=== PATIENT | female | born 1965 | race Caucasian/White ===

== ENCOUNTER 2020-08-02 16:48 | Emergency (ER) | payer MEDICARE, OTHER ==
[~2020-08-02] VITALS: Ht 162.6 cm; Wt 86.2 kg
--- NOTE | 2020-08-02 17:32 | ED Fall/Injury ---
General Chief Complaint: Trauma-Non Activation Stated Complaint: FELL,HIT HEAD Source: patient History of Present Illness Date Seen by Provider: Aug 02, 2020 Time Seen by Provider: 17:32 Initial Comments 55-year-old female presenting from home after she fell off of her porch. She hit the back of her head on concrete. She denies any loss of consciousness. She has mild nausea. She denies any other injuries. She was illness and after the accident. She just had tenderness shot last week at her doctor's office for routine maintenance. She has no change in her vision. She denies any numbness or tingling in her arms or legs. She has no shortness of breath or cough. She denies any fever or chills. Allergies and Home Medications Allergies Coded Allergies: cephalexin (Verified Allergy, Unknown, Rash, 08/02/20) Patient Home Medication List Home Medication List Reviewed: Yes Review of Systems Review of Systems Constitutional: No chills, No dizziness, No fever Eyes: Denies Blurred Vision, Denies Photophobia Ears, Nose, Mouth, Throat: denies ear discharge, denies nose pain, denies nose discharge, denies epistaxis Respiratory: no symptoms reported Cardiovascular: no symptoms reported Gastrointestinal: nausea; No vomiting Genitourinary: no symptoms reported Musculoskeletal: no symptoms reported Skin: other (laceration to the back of her head with swelling and bleeding since the accident) Psychiatric/Neurological: Headache (to back of head since the accident) Past Qouucwp-Gauzqr-Bfcsom Hx Past Med/Social Hx: Reviewed Nursing Past Med/Soc Hx Patient Social History Recent Foreign Travel: No Contact w/Someone Who Travel: No Immunizations Up To Date Tetanus Booster (TDap): Less than 5yrs Past Medical History Respiratory: No Cardiac: Yes Hypertension Neurological: No Gastrointestinal: No Musculoskeletal: No Endocrine: Yes Hypothyroidsim Physical Exam Vital Signs Vital Signs - First Documented Capillary Refill : Height, Weight, BMI Height: '" Weight: lbs. oz. kg; BMI Method: General Appearance: WD/WN, mild distress HEENT: PERRL/EOMI, normal ENT inspection, TMs normal, pharynx normal, other (occipital scalp lac x 2 with swelling and tenderness to back of head) Neck: non-tender, full range of motion, supple, normal inspection Cardiovascular: normal peripheral pulses, regular rate, rhythm Respiratory: chest non-tender, lungs clear, normal breath sounds, no respiratory distress, no accessory muscle use Gastrointestinal: normal bowel sounds, non tender, soft Extremities: normal range of motion, non-tender, normal capillary refill Neurologic/Psychiatric: 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 Then I anesthetized wound with 1% plain lidocaine before placing paulie to approximate wound edges. She tolerated the procedure well without any immediate complications. Wound Location: Scalp Wound Length (cm): 1.8 Wound's Depth, Shape: sub Q Wound Explored: clean Anesthesia: 1% Lidocaine Volume Anesthetic (ccs): 4 Staple Repair: Stapler 35W (3 paulie) Progress Wound cleaned with chlorhexidine surgical soap and sterile saline by nurse. Then I anesthetized wound with 1% plain lidocaine before placing paulie to approximate wound edges. She tolerated the procedure well without any immediate complications. Progress/Results/Core Measures Results/Orders My Orders Orders - CHANG STEWART MD Lidocaine 1% Inj 20 Ml (Xylocaine 1% Inj (08/02/20 17:41) Ct Head/Cervical Spine Wo (08/02/20 17:42) Lidocaine 1% Inj 20 Ml (Xylocaine 1% Inj (08/02/20 17:37) Ice: Apply To Affected Area (08/02/20 18:25) Vital Signs/I&O 08/02/20 08/02/20 08/02/20 16:55 16:55 19:10 Temp 36.6 36.6 Pulse 66 66 72 Resp 16 16 18 B/P (MAP) 182/92 (122) 182/92 (122) 156/90 (122) Pulse Ox 100 100 99 O2 Delivery Room Air Room Air Room Air Progress Progress Note #1: Progress Note occipital scalp wounds cleaned by RN. Then after obtaining verbal consent from pt I injected 1% plain lidocaine and then used paulie to close the 2 lacerations. She tolerated this well without any immediate complications. Will scan head and cervical spine to ensure no skull fracture, cervical spine fracture or intracranial hemorrhage. Provided this looks ok will plan discharge to home. [place] out in 7 to 10 days. Progress Note #2: Progress Note CT scans do not show any acute skull fracture or bleeding intracranial. Counseled on follow up and return precautions for the paulie. Diagnostic Imaging Diagonstic Imaging: CT Plain Films/CT/US/NM/MRI: c-spine, head Comments NAME: ASP[facility]AT[facility]A [facility] REC#: [id number] PT STATUS: REG ER : 1965 PHYSICIAN: CHANG STEWART MD ADMIT DATE: 08/02/20/ER FS Draft Date of Exam:08/02/20 CT HEAD/CERVICAL SPINE WO Clinical indication: Patient fell from porch and hit back of head. No loss of consciousness. Patient has occipital scalp laceration. Exam: Head CT without IV contrast with coronal and sagittal reformatted images. Axial CT scan of the cervical spine with sagittal and coronal reformations. Auto Exposure Controls were utilized during the CT exam to meet ALARA standards for radiation dose reduction. Comparison: None. Findings: Head CT: There is no evidence of acute cerebral infarct, intracranial hemorrhage, or gross mass effect. There is normal crum-white matter distinction. The brain parenchymal volume appears appropriate for patient's age. There is no significant midline shift or herniation. The visualized [place] of Renee vascular structures have normal flow void appearance. There is no evidence of hydrocephalus. The basal cisterns are unremarkable. There is a moderate size area of extracranial soft tissue swelling and hematoma involving the right posterior aspect of the head. There is no skull fracture. Otherwise, the skull, extracranial soft tissue, and orbits are unremarkable. The paranasal sinuses are unremarkable. Cervical spine: There is no acute cervical spine fracture or dislocation. There are small anterior spurs at the C6-C7 level anteriorly. Otherwise, there is no significant bone or joint abnormality. There is no significant central spinal canal or neural foramen narrowing. There is no neck soft tissue abnormality seen. The visualized portions of the lung apices are unremarkable. Vagal nerve stimulator device seen overlying the left upper chest and neck region. Impression: 1: There is no CT evidence of acute intracranial process. There is no intracranial hemorrhage or skull fracture. There is a moderate size area of extracranial soft tissue swelling/hematoma involving the right posterior aspect of the head. 2: There is no acute cervical spine fracture or dislocation. Dictated on workstation # [id number] Dict: 08/02/20 1846 Trans: 08/02/20 1854 [facility] [id number] Interpreted by: HUE TODD MD Electronically signed by: Departure Impression Primary Impression: Occipital scalp laceration Qualified Codes: S01.01XA - Laceration without foreign body of scalp, initial encounter Additional Impressions: Closed head injury without loss of consciousness Qualified Codes: S09.90XA - Unspecified injury of head, initial encounter Fall at home Qualified Codes: W19.XXXA - Unspecified fall, initial encounter; Y92.009 - Unspecified place in unspecified non-institutional (private) residence as the place of occurrence of the external cause Disposition: 01 HOME, SELF-CARE Condition: Stable Departure-Patient Inst. Decision time for Depature: 18:57 Referrals: [facility] [place] Patient Instructions: Minor Head Injury (DC), Laceration Repair With Paulie (DC) Add. Discharge Instructions: Keep wound on scalp clean and dry for first 24 hours then may wash and shampoo like normal, but do not soak it. The paulie may be removed with your primary provider or here in the ED in 7 to 10 days. Acetaminophen or Ibuprofen as needed for pain. Ice 15-20 minutes every few hours as needed for pain. All discharge instructions reviewed with patient and/or family. Voiced understanding. CHANG STEWART MD Aug 02, 2020 17:32
[2020-08-02] MEDS ORDERED: LIDOCAINE 1% INJ 20 ML 20 ML VIAL ONE (17:37)
[2020-08-02] MEDS ORDERED: LIDOCAINE 1% INJ 20 ML 20 ML VIAL INJ STA (17:41)
--- NOTE | 2020-08-02 18:53 | NUR ---
Report was given to GLENN Enriquez. Care was transferred.
--- NOTE | 2020-08-02 18:54 | Diagnostic Imaging Report ---
Clinical indication: Patient fell from porch and hit back of head. No loss of consciousness. Patient has occipital scalp laceration. Exam: Head CT without IV contrast with coronal and sagittal reformatted images. Axial CT scan of the cervical spine with sagittal and coronal reformations. Auto Exposure Controls were utilized during the CT exam to meet ALARA standards for radiation dose reduction. Comparison: None. Findings: Head CT: There is no evidence of acute cerebral infarct, intracranial hemorrhage, or gross mass effect. There is normal crum-white matter distinction. The brain parenchymal volume appears appropriate for patient's age. There is no significant midline shift or herniation. The visualized [place] of Renee vascular structures have normal flow void appearance. There is no evidence of hydrocephalus. The basal cisterns are unremarkable. There is a moderate size area of extracranial soft tissue swelling and hematoma involving the right posterior aspect of the head. There is no skull fracture. Otherwise, the skull, extracranial soft tissue, and orbits are unremarkable. The paranasal sinuses are unremarkable. Cervical spine: There is no acute cervical spine fracture or dislocation. There are small anterior spurs at the C6-C7 level anteriorly. Otherwise, there is no significant bone or joint abnormality. There is no significant central spinal canal or neural foramen narrowing. There is no neck soft tissue abnormality seen. The visualized portions of the lung apices are unremarkable. Vagal nerve stimulator device seen overlying the left upper chest and neck region. Impression: 1: There is no CT evidence of acute intracranial process. There is no intracranial hemorrhage or skull fracture. There is a moderate size area of extracranial soft tissue swelling/hematoma involving the right posterior aspect of the head. 2: There is no acute cervical spine fracture or dislocation. Dictated by: Dictated on workstation # [id number]
[2020-08-02 19:10] VITALS: BP 156/90
== END 2020-08-02 19:10 | disposition home or self-care (01) ==
LOC: EDUNIT# 16:48 → ER FS 16:50
DX: S01.01XA Laceration without foreign body of scalp, initial encounter (principal); S09.90XA Unspecified injury of head, initial encounter; R40.2410 Glasgow coma scale score 13-15, unspecified time; Z88.1 Allergy status to other antibiotic agents; W17.89XA Other fall from one level to another, initial encounter; W22.8XXA Striking against or struck by other objects, initial encounter; Y92.009 Unspecified place in unspecified non-institutional (private) residence as the place of occurrence of the external cause
CPT/HCPCS: 70450; 72125

== ENCOUNTER 2020-08-12 13:55 | Emergency (ER) | payer MEDICARE ==
[2020-08-12 14:08] VITALS: BP 156/79
--- NOTE | 2020-08-12 14:10 | ED Suture Removal/Wound Check ---
Suture/Wound Re-check Suture Removal/Wound Recheck : Suture Removal/Wound Recheck: [place] removed by RN General Appearance: WD/WN, no apparent distress Skin Exam: normal color, warm/dry Physical Exam Vital Signs Capillary Refill : General Appearance: WD/WN, no apparent distress HEENT: PERRL/EOMI, normal ENT inspection, TMs normal, pharynx normal Neck: non-tender, full range of motion, supple, normal inspection Skin: normal color, warm/dry Departure Impression Primary Impression: Encounter for removal of sutures Disposition: HOME, SELF-CARE Condition: Stable Departure-Patient Inst. Decision time for Depature: 14:10 Referrals: JOSELO TIRADO MD (PCP/Family) Primary Care Physician Patient Instructions: STAPLE REMOVAL - UNCOMPLICATED RADHA TOMLINSON MD Aug 12, 2020 14:10
== END 2020-08-12 14:15 | disposition home or self-care (01) ==
LOC: EDUNIT# 13:55 → ER FS 13:56
DX: S01.91XD Laceration without foreign body of unspecified part of head, subsequent encounter (principal); X58.XXXD Exposure to other specified factors, subsequent encounter

== ENCOUNTER → 2021-03-11 | Outpatient (CLI) | payer MEDICARE ==
[~2021-03-11] MED LIST: CATHETER FLUSH 10 ML SYR IV PRN; HOLD METFORMIN - RECEIVED CONTRAST 20 ML VIAL IV SCH; IOHEXOL 350 MG/ML 100 ML (OMNIPAQUE 350) VIAL IV ONE; NS 100 ML (IVPB) BAG IV ONE
--- NOTE | 2021-03-11 15:57 | Diagnostic Imaging Report ---
PROCEDURE: CT abdomen and pelvis with contrast. TECHNIQUE: Multiple contiguous axial images were obtained through the abdomen and pelvis after administration of intravenous contrast. Auto Exposure Controls were utilized during the CT exam to meet ALARA standards for radiation dose reduction. All CT scans use one or more of the following dose optimizing techniques: automated exposure control, MA and/or KvP adjustment based on patient size and exam type or iterative reconstruction. INDICATION: Right lower quadrant pain for 2 months. FINDINGS: Lung bases are clear. Liver appears normal. Gallbladder is absent. Bile ducts are not dilated. The pancreas is normal. There is mild splenomegaly. The adrenal glands are not enlarged. Kidneys appear normal. There is normal enhancement of the abdominal organs and vessels following IV contrast. Aorta shows mild atherosclerotic change without evidence of aneurysm or dissection. The stomach and small bowel are not dilated. Colon shows normal stool and gas pattern. Appendix is visualized and normal. There is some diverticulosis of the sigmoid colon but no evidence of diverticulitis. The uterus is absent. There are no pelvic masses. Bladder is normal. No free air or free fluid. No intra-abdominal adenopathy of pathologic size. No blastic or lytic bony changes. IMPRESSION: 1. Mild splenomegaly, nonspecific in nature. 2. The appendix is well-visualized and appears normal. The small bowel shows no evidence of dilatation or wall thickening. 3. Diverticulosis without evidence of diverticulitis. Dictated by: Dictated on workstation # [id number]
== END ==
LOC: RAD FS 15:22
PROVIDERS: ATTEND Family Medicine
DX: K57.30 Diverticulosis of large intestine without perforation or abscess without bleeding (principal); R16.1 Splenomegaly, not elsewhere classified
CPT/HCPCS: 74177

== ENCOUNTER 2021-06-20 17:52 | Emergency (ER) | payer MEDICARE ==
[~2021-06-20] VITALS: Ht 162.6 cm; Wt 83.0 kg
--- OUTSIDE RECORDS SUMMARY | 2021-06-20 17:58 | XMS REPORT | Clinical Summary ---
Author Author [facility] Organization [facility] Address Unknown Phone Unavailable Care Team Providers Care Can Operator Name Role Phone Sebastian Coy MD PCP Allergies Comments Active Allergy Reactions Severity Noted Date Cephalexin Rash Low 06/07/2015 Medications End Date Status Medication Sig Dispensed Refills Start Date Active lithium 300 MG capsule Take 300 mg 0 by mouth every morning. Active sertraline (ZOLOFT) 100 Take 250 mg 0 MG tablet by mouth every morning. Active levothyroxine (SYNTHROID, Take 25 mcg 0 LEVOTHROID) 25 MCG tablet by mouth every morning. Active QUEtiapine (SEROQUEL XR) Take 600 mg 0 400 MG ER 24 hr tablet by mouth nightly. Active atorvastatin (LIPITOR) 10 Take 10 mg by 0 MG tablet mouth nightly. Active ALPRAZolam (XANAX) 0.25 Take 0.25 mg 0 MG tablet by mouth nightly as needed for sleep. Active lithium 600 MG capsule Take 600 mg 0 by mouth every evening. 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 Depression 06/07/2015 Social History Date Tobacco Use Types Packs/Day Years Used Never Smoker Smokeless Tobacco: Never Used Comments Alcohol Use Standard Drinks/Week No 0 (1 standard drink = 0.6 o z pure alcohol) Sex Assigned at Date Recorded Not on file Last Filed Vital Signs Reading Time Taken Comments Vital Sign 136/85 06/21/2015 9:32 AM CDT Blood Pressure 81 06/21/2015 9:43 AM CDT Pulse 36.3 C (97.3 F) 06/21/2015 9:43 AM CDT Temperature 17 06/21/2015 9:43 AM CDT Respiratory Rate 96% 06/21/2015 9:43 AM CDT Oxygen Saturation - - Inhaled Oxygen Concentration 77.1 kg (170 lb) 06/21/2015 7:08 AM CDT Weight 162.6 cm (5' 4.02") 06/21/2015 7:08 AM CDT Height 29.17 06/21/2015 7:08 AM CDT Body Mass Index Plan of Treatment Health Maintenance Due Date Last Done Comments Td/Tdap# 1965 Cervical Cancer Screening 1985 via Pap Smear Zoster Vaccine# (1 of 2) 2014 Influenza Vaccine (#1) 2021 Pneumococcal Vaccine: Aged Out No longer eligib le based on patient's age to Pediatrics (0 to 5 Years) complete this topic and At-Risk Patients (6 to 64 Years) Implants Device Identifier Shelf Expiration Date Model / Serial / L ot Implanted Type Area Manufactur er 12/28/2016 105 / [id number] / Implant Generator [employer]ire Hc Model Non-Tissue Left: Chest [employer] 105 - [id number] Implant , INC Implanted: Qty: 1 on 06/21/2015 by Marino Gamble MD at [facility] Vagal Nerve Stimulator Results Not on filefrom Last 3 Months Insurance Type Payer Benefit Subscriber ID Effective Phone Address Plan / Dates Group Medicare MEDICARE MEDICARE [id number] [place] PART A B [facility] [place] [address] Personal/F Self 1965 [id number] amily (Home) [facility] [place] [address]
[2021-06-20] MEDS ORDERED: hydrALAZINE (APESOLINE) 20 MG/ML VIAL IV STA (18:07)
[2021-06-20] MEDS ORDERED: KETOROLAC 30 MG/ML VIAL IVP STA (18:07)
--- NOTE | 2021-06-20 18:14 | ED General ---
General Chief Complaint: Cardiac/General Problems Stated Complaint: HIGH BP Source of Information: Patient History of Present Illness Date Seen by Provider: Jun 20, 2021 Time Seen by Provider: 17:55 Initial Comments 55-year-old female presenting with complaints of elevated blood pressure over the last week to week and a half. She has also been having headaches in the last 10 to 14 days. She has been keeping a journal where she has been checking her blood pressure multiple times throughout the day. She spoke with Dr. Tirado's nurse yesterday and was started on lisinopril in addition to her atenolol. The first dose of her lisinopril was today. Around 3 PM she was having severe chest pain and her blood pressure was almost 200 systolic. She had gone to urgent care and they referred her here to the emergency department because of her blood pressure and complaining of chest pain. She states that on arrival to the ED she is having chest pain but she still has some pain in her jaw. She took an Ativan to help with her chest pain and sensation of heart racing but did not take anything for headache or jaw pain. She had some nausea earlier but no vomiting. She denies cough, fever, chills, shortness of breath. She has no significant family history of heart disease. she is on multiple medicines for depression and anxiety. Associated Systoms: Chest Pain; No Cough, No Diaphoresis, No Fever/Chills; Headaches; No Loss of Appetite, No Malaise; Nausea/Vomiting (nausea but no vomiting); No Rash, No Seizure, No Shortness of Air, No Syncope, No Weakness Allergies and Home Medications Allergies Coded Allergies: cephalexin (Verified Allergy, Unknown, Rash, 08/02/20) Patient Home Medication List Home Medication List Reviewed: Yes Review of Systems Review of Systems Constitutional: No chills, No dizziness, No fever EENTM: no symptoms reported Respiratory: no symptoms reported Cardiovascular: see HPI Gastrointestinal: see HPI Genitourinary: no symptoms reported Musculoskeletal: no symptoms reported Skin: No rash Psychiatric/Neurological: See HPI, Anxiety, Headache; Denies Numbness, Denies Paresthesia Past Ckqvglo-Lyvnuh-Nayngs Hx Immunizations Up To Date Tetanus Booster (TDap): Less than 5yrs Seasonal Allergies Seasonal Allergies: No Past Medical History Surgeries: Yes (vagus nerve stimulator) Gallbladder, Hysterectomy Respiratory: No Cardiac: Yes Hypertension Neurological: No Genitourinary: No Gastrointestinal: No Musculoskeletal: No Endocrine: Yes Hypothyroidsim HEENT: No Cancer: No Psychosocial: Yes Anxiety, Depression Integumentary: No Blood Disorders: No Physical Exam Vital Signs Vital Signs - First Documented 06/20/21 17:53 Temp 36.9 Pulse 69 Resp 18 B/P (MAP) 168/90 (116) Pulse Ox 99 O2 Delivery Room Air Capillary Refill : Height, Weight, BMI Height: '" Weight: lbs. oz. kg; 32.00 BMI Method:Actual General Appearance: Anxious, Obese HEENT: PERRL/EOMI, Pharynx Normal Neck: Full Range of Motion, Normal Inspection, Non Tender, Supple Respiratory: Chest Non Tender, Lungs Clear, Normal Breath Sounds, No Accessory Muscle Use, No Respiratory Distress Cardiovascular: Regular Rate, Rhythm, Normal Peripheral Pulses Gastrointestinal: Normal Bowel Sounds, No Pulsatile Mass, Non Tender, Soft Rectal: Deferred Extremity: Normal Capillary Refill, Normal Inspection, No Pedal Edema Neurologic/Psychiatric: Alert, Oriented x3, consumer educator II-XII Norm as Tested Skin: Normal Color, Warm/Dry Progress/Results/Core Measures Suspected Sepsis SIRS Temperature: Pulse: Respiratory Rate: Laboratory Tests 06/20/21 18:05: White Blood Count 5.9 Blood Pressure / Mean: Laboratory Tests 06/20/21 18:05: Creatinine 1.69H, INR Comment 1.0, Platelet Count 134, Total Bilirubin 0.3 Results/Orders Lab Results Laboratory Tests Test 06/20/21 18:05 06/20/21 19:45 Range/Units White Blood Count 5.9 4.3-11.0 10^3/uL Red Blood Count 3.51 L 3.80-5.11 10^6/uL Hemoglobin 11.4 L 11.5-16.0 g/dL Hematocrit 35 35-52 % Mean Corpuscular Volume 99 80-99 fL Mean Corpuscular Hemoglobin 32 25-34 pg Mean Corpuscular Hemoglobin Concent 33 32-36 g/dL Red Cell Distribution Width 13.2 10.0-14.5 % Platelet Count 134 130-400 10^3/uL Mean Platelet Volume 10.2 9.0-12.2 fL Immature Granulocyte % (Auto) 0 % Neutrophils (%) (Auto) 68 42-75 % Lymphocytes (%) (Auto) 18 12-44 % Monocytes (%) (Auto) 10 0-12 % Eosinophils (%) (Auto) 4 0-10 % Basophils (%) (Auto) 1 0-10 % Neutrophils # (Auto) 4.0 1.8-7.8 X 10^3 Lymphocytes # (Auto) 1.0 1.0-4.0 X 10^3 Monocytes # (Auto) 0.6 0.0-1.0 X 10^3 Eosinophils # (Auto) 0.3 0.0-0.3 10^3/uL Basophils # (Auto) 0.0 0.0-0.1 10^3/uL Immature Granulocyte # (Auto) 0.0 0.0-0.1 10^3/uL Prothrombin Time 13.4 12.2-14.7 SEC INR Comment 1.0 0.8-1.4 Activated Partial Thromboplast Time 27 24-35 SEC Sodium Level 140 135-145 MMOL/L Potassium Level 3.8 3.6-5.0 MMOL/L Chloride Level 107 98-107 MMOL/L Carbon Dioxide Level 24 21-32 MMOL/L Anion Gap 9 5-14 MMOL/L Blood Urea Nitrogen 15 7-18 MG/DL Creatinine 1.69 H 0.60-1.30 MG/DL Estimat Glomerular Filtration Rate 31 BUN/Creatinine Ratio 9 Glucose Level 104 70-105 MG/DL Calcium Level 10.7 H 8.5-10.1 MG/DL Corrected Calcium 8.5-10.1 MG/DL Magnesium Level 2.0 1.6-2.4 MG/DL Total Bilirubin 0.3 0.1-1.0 MG/DL Aspartate Amino Transf (AST/SGOT) 13 5-34 U/L Alanine Aminotransferase (ALT/SGPT) 13 0-55 U/L Alkaline Phosphatase 76 40-136 U/L Troponin I < 0.30 < 0.30 <0.30 NG/ML Pro-B-Type Natriuretic Peptide 34.2 <75.0 PG/ML Total Protein 6.7 6.4-8.2 GM/DL Albumin 4.7 H 3.2-4.5 GM/DL Lipase 28 8-78 U/L My Orders Orders - CHANG STEWART MD Cbc With Automated Diff (06/20/21 18:06) Magnesium (06/20/21 18:06) Chest 1 View Ap/Pa Only (06/20/21 18:06) Ekg Tracing (06/20/21 18:06) Comprehensive Metabolic Panel (06/20/21 18:06) Protime With Inr (06/20/21 18:06) Partial Thromboplastin Time (06/20/21 18:06) O2 (06/20/21 18:06) Monitor-Rhythm Ecg Trace Only (06/20/21 18:06) Ed Iv/Invasive Line Start (06/20/21 18:06) Lipase (06/20/21 18:06) Troponin I Fs (06/20/21 18:06) Probnp Fs (06/20/21 18:06) Ketorolac Injection (Toradol Injection) (06/20/21 18:07) Hydralazine Injection (Apresoline Inject (06/20/21 18:07) Ns Iv 1000 Ml (Sodium Chloride 0.9%) (06/20/21 19:19) Troponin I Fs (06/20/21 19:45) Vital Signs/I&O 06/20/21 06/20/21 17:53 20:28 Temp 36.9 Pulse 69 65 Resp 18 18 B/P (MAP) 168/90 (116) 138/76 Pulse Ox 99 98 O2 Delivery Room Air Room Air Capillary Refill : Progress Note #1: Progress Note Check ECG with labs and CXR. Give a dose of toradol and hydralazine for blood pressure and jaw pain with headache. differential diagnosis includes hypertensive crisis, myocardial infarction, anxiety, migraine headache Progress Note #2: Progress Note ECG, CXR and labs all stable without acute myocardial infarction or pneumonia showing on test. She did have elevated Cr of 1.69 but unsure of baseline. Will give 1 L NS bolus and repeat Troponin since it is over 4 hours since onset of pain. If no changes discharge to home to give time for Lisinopril to work with Atenolol. She had improved bp with treatment here in ED and Headache better but not gone. Pt refused tylenol or other meds for headache, but was willing to try fluids and repeat Troponin. Progress Note #3: Progress Note Repeat troponin still <0.3. Symptoms improved with fluids and treatment in ED. Counseled on follow up and return precautions. Advised to give time for bp meds to work and use anxiety medicine as well. ECG Initial ECG Impression Date: Jun 20, 2021 Initial ECG Impression Time: 17:57 Initial ECG Rate: 59 Initial ECG Rhythm: Normal Sinus Initial ECG Comparisson: No Previous ECG Available Comment Normal sinus rhythm with a heart rate of 59 bpm. PA interval [address] elevation. QT interval 430 ms with a QTc interval 426 ms. No prior tracing available for comparison. Diagnostic Imaging Diagonstic Imaging: Xray Plain Films/CT/US/NM/MRI: chest Comments NAME: ASPEN MORATAYA [facility] REC#: [id number] PT STATUS: REG ER : 1965 PHYSICIAN: CHANG STEWART MD ADMIT DATE: 06/20/21/ER FS Draft Date of Exam:06/20/21 CHEST 1 VIEW AP/PA ONLY INDICATION: Chest pain, neurostimulator in place x 12 years. TECHNIQUE: Single view chest 6:02 PM. CORRELATION STUDY: None. FINDINGS: Generator pack over the left chest with leads coursing into the upper chest and neck. Heart size is borderline enlarged. Mediastinum is mildly prominent. Tortuous ectatic thoracic aorta. Vasculature within normal limits. The lungs are clear with no consolidating infiltrate. There is no significant effusion or pneumothorax. IMPRESSION: Negative for acute abnormality of the chest. Generator pack over left chest with leads coursing into the soft tissue of the neck. Dictated on workstation # [id number] Dict: 06/20/21 1819 Trans: 06/20/21 1826 [facility] [id number] Interpreted by: ALENA JUÁREZ DO Electronically signed by: Reviewed: Reviewed by Me Departure Impression Primary Impression: Elevated blood pressure reading with diagnosis of hypertension Additional Impressions: Headache Qualified Codes: R51.9 - Headache, unspecified Renal insufficiency, mild Disposition: 01 HOME, SELF-CARE Condition: Stable Departure-Patient Inst. Decision time for Depature: 20:06 Referrals: JOSELO TIRDAO MD (PCP/Family) Primary Care Physician Patient Instructions: High Blood Pressure ED, Headache, Adult ED, How to Keep Track of Your Headaches Add. Discharge Instructions: Drink plenty of water and stay well hydrated. Take the Lisinopril and Atenolol and follow up with Dr. Gugnani in clinic on Wednesday as scheduled to see how you are responding to the medicine. Return or seek medical care if having worsening symptoms before you are seen in clinic All discharge instructions reviewed with patient and/or family. Voiced understanding. CHANG STEWART MD Jun 20, 2021 18:14
[2021-06-20 18:17] LABS: HEMATOCRIT 35 % (35-52); HEMOGLOBIN 11.4 g/dL (11.5-16.0); MEAN CORPUSCULAR HEMOGLOBIN 32 pg (25-34); MEAN CORPUSCULAR HGB CONC 33 g/dL (32-36); MEAN CORPUSCULAR VOLUME 99 fL (80-99); WHITE BLOOD COUNT 5.9 10^3/uL (4.3-11.0)
[2021-06-20 18:18] LABS: BASOPHILS % (AUTO) 1 % (0-10); EOSINOPHILS # (AUTO) 0.3 10^3/uL (0.0-0.3); EOSINOPHILS % (AUTO) 4 % (0-10); LYMPHOCYTES % (AUTO) 18 % (12-44); MEAN PLATELET VOLUME 10.2 fL (9.0-12.2); MONOCYTES # (AUTO) 0.6 X 10^3 (0.0-1.0); MONOCYTES % (AUTO) 10 % (0-12); NEUTROPHILS % (AUTO) 68 % (42-75); PLATELET COUNT 134 10^3/uL (130-400)
--- NOTE | 2021-06-20 18:26 | Diagnostic Imaging Report ---
INDICATION: Chest pain, neurostimulator in place x 12 years. TECHNIQUE: Single view chest 6:02 PM. CORRELATION STUDY: None. FINDINGS: Generator pack over the left chest with leads coursing into the upper chest and neck. Heart size is borderline enlarged. Mediastinum is mildly prominent. Tortuous ectatic thoracic aorta. Vasculature within normal limits. The lungs are clear with no consolidating infiltrate. There is no significant effusion or pneumothorax. IMPRESSION: Negative for acute abnormality of the chest. Generator pack over left chest with leads coursing into the soft tissue of the neck. Dictated by: Dictated on workstation # [id number]
[2021-06-20 18:30] LABS: PROTHROMBIN TIME PATIENT 13.4 SEC (12.2-14.7)
[2021-06-20 18:37] LABS: CARBON DIOXIDE 24 MMOL/L (21-32); CHLORIDE 107 MMOL/L (98-107); POTASSIUM 3.8 MMOL/L (3.6-5.0); SODIUM 140 MMOL/L (135-145)
[2021-06-20 18:38] LABS: ALANINE AMINOTRANSFERASE 13 U/L (0-55); ALBUMIN 4.7 GM/DL (3.2-4.5); ALKALINE PHOSPHATASE 76 U/L (40-136); BILIRUBIN,TOTAL 0.3 MG/DL (0.1-1.0); BUN/CREATININE RATIO 9; CALCIUM 10.7 MG/DL (8.5-10.1); CREATININE SERUM 1.69 MG/DL (0.60-1.30); GFR ESTIMATED 31; GLUCOSE 104 MG/DL (70-105); LIPASE 28 U/L (8-78); TOTAL PROTEIN 6.7 GM/DL (6.4-8.2)
[2021-06-20] MEDS ORDERED: NS IV 1000 ML 1,000 ML IV STA (19:19)
[2021-06-20 20:28] VITALS: BP 138/76
== END 2021-06-20 20:28 | disposition home or self-care (01) ==
LOC: EDUNIT# 17:52 → ER FS 17:52
DX: I10 Essential (primary) hypertension (principal); N28.9 Disorder of kidney and ureter, unspecified; E66.9 Obesity, unspecified; Z68.32 Body mass index [BMI] 32.0-32.9, adult
CPT/HCPCS: 36415; 71045; 80053; 83690; 83735; 83880; 84484; 85025; 85610; 85730; 93041

== ENCOUNTER 2022-05-31 18:21 | Day surgery (SDC) | payer MEDICARE ==
[~2022-05-31] VITALS: Ht 162.6 cm; Wt 81.1 kg
[2022-05-31] MEDS ORDERED: fentaNYL INJ 100 MCG/2 ML AMP IVP STA ×2 (18:25→18:41)
--- NOTE | 2022-05-31 18:25 | ED Lower Extremity ---
General Stated Complaint: FALL/LEFT ANKLE INJURY History of Present Illness Date Seen by Provider: May 31, 2022 Time Seen by Provider: 18:25 Initial Comments 56-year-old female presents with obvious left ankle injury. Patient reports that she took a misstep off of 3-4 inch step when she landed wrong she fell. Patient reports she last ate 20 minutes prior to arrival with some chips and body armor. Patient reports she is up-to-date on her tetanus. She reports ports no other injury. Allergies and Home Medications Allergies Coded Allergies: cephalexin (Verified Allergy, Unknown, Rash, 08/02/20) Patient Home Medication List Home Medication List Reviewed: Yes Review of Systems Constitutional: no symptoms reported EENTM: no symptoms reported Respiratory: no symptoms reported Cardiovascular: no symptoms reported Gastrointestinal: no symptoms reported Genitourinary: no symptoms reported Musculoskeletal: see HPI Skin: see HPI Psychiatric/Neurological: No Symptoms Reported Past Fcnrymz-Qjpuss-Jsmjwr Hx Immunizations Up To Date Tetanus Booster (TDap): Less than 5yrs Seasonal Allergies Seasonal Allergies: No Past Medical History Surgeries: Yes (vagus nerve stimulator) Gallbladder, Hysterectomy Respiratory: No Cardiac: Yes Hypertension Neurological: No Genitourinary: No Gastrointestinal: No Musculoskeletal: No Endocrine: Yes Hypothyroidsim HEENT: No Cancer: No Psychosocial: Yes Anxiety, Depression Integumentary: No Blood Disorders: No Physical Exam Vital Signs Vital Signs - First Documented 05/31/22 18:25 Temp 36.7 Pulse 69 Resp 18 B/P (MAP) 158/76 (103) Pulse Ox 97 O2 Delivery Room Air Capillary Refill : Height, Weight, BMI Height: '" Weight: lbs. oz. kg; 31.00 BMI Method:Actual General Appearance: mild distress HEENT: PERRL/EOMI, TMs normal Neck: full range of motion Cardiovascular: normal peripheral pulses, regular rate, rhythm Respiratory: lungs clear, normal breath sounds, no respiratory distress Gastrointestinal: non tender Hips: bilateral hip non-tender, bilateral hip normal inspection Legs: bilateral leg non-tender, bilateral leg normal inspection Knees: bilateral knee non-tender, bilateral knee normal inspection Ankles: left ankle deformity, left ankle soft tissue tenderness, left ankle swelling Neurologic/Psychiatric: alert, normal mood/affect, oriented x 3 Skin: other (Abrasion medial left ankle) Procedures/Interventions Splinting and Joint Reduction : Location: Left ankle Pre-Proc Neuro Vasc Exam: normal Post-Proc Neuro Vasc Exam: normal Progress Patient tolerated well with no immediate complications with good improvement Reduction Attempts: 1 Pre-Procedure NV Exam: Yes post joint reduction film: joint reduced Hand-Made Type: orthoglass (Sugar-tong and posterior) Progress/Results/Core Measures Results/Orders My Orders Orders - MELANIA ASIF DO Fentanyl Inj (Sublimaze Injection) (05/31/22 18:25) Ankle 3 View Left (05/31/22 18:25) Fentanyl Inj (Sublimaze Injection) (05/31/22 18:41) Ankle 2 View Left (05/31/22 18:49) Admission Order(Inpt,Obs,Sdc) (05/31/22 19:18) Code/Resuscitation (05/31/22 19:18) Ambulate 08,12,20 (05/31/22 19:18) Sequential Compression Device ONCE (05/31/22 19:18) Initiate Admission Nursing Pro .admission (05/31/22 19:18) Isolation Central Supply Req (05/31/22 19:18) Vital Signs/I&O 05/31/22 18:25 Temp 36.7 Pulse 69 Resp 18 B/P (MAP) 158/76 (103) Pulse Ox 97 O2 Delivery Room Air Progress Progress Note : Progress Note Patient with obvious trimalleolar ankle fracture with dislocation. Patient was given a hematoma block with lidocaine and bupivacaine. Patient had ankle reduced on 1 attempt with a sugar-tong and posterior splint then placed. Patien t tolerated procedure well. Called and discussed with Dr. Blair who will accept patient for observation with probable surgery in the a.m. Diagnostic Imaging Diagonstic Imaging: Xray Plain Films/CT/US/NM/MRI: ankle Comments Date of Exam:05/31/22 ANKLE 3 VIEW LEFT INDICATION: Fall. Left ankle pain and swelling. COMPARISON: None. FINDINGS: Multiple radiographic views of left ankle were obtained and show acute fracture dislocation. There is acute transversely oriented fracture of the distal fibula with moderate displacement of distal fracture fragment. There is also fracture through the base of the medial and posterior malleoli. Additionally, there is severe lateral dislocation of the talus in respect to the tibia. No unexpected radiopaque foreign bodies are seen. IMPRESSION: Acute fracture dislocation of the left ankle. Reviewed: Reviewed by Me, Reviewed/Discussed Diagonstic Imaging: Xray Plain Films/CT/US/NM/MRI: ankle Comments Date of Exam:05/31/22 ANKLE 2 VIEW LEFT INDICATION: Status post reduction. COMPARISON: Radiographs from earlier the same day. FINDINGS: Two radiographic views of the left ankle were obtained. Evaluation is partially obscured by radiopaque cast material. Trimalleolar fracture of the left ankle is again identified. There is improved alignment of the tibiotalar joint space. There is moderate residual asymmetric widening medially. No unexpected radiopaque foreign bodies are seen. IMPRESSION: Improved alignment status post reduction and placement of radiopaque cast material. Reviewed: Reviewed by Me, Reviewed/Discussed Departure Impression Primary Impression: Ankle fracture Qualified Codes: S82.892A - Other fracture of left lower leg, initial encounter for closed fracture Disposition: 30 STILL A PATIENT Condition: Stable Admissions Decision to Admit Reason: Admit from ER (General) Decision to Admit/Date: May 31, 2022 Time/Decision to Admit Time: 19:00 Departure-Patient Inst. Referrals: JOSELO TIRADO MD (PCP/Family) Primary Care Physician MELANIA ASIF DO May 31, 2022 18:25
--- NOTE | 2022-05-31 18:44 | Diagnostic Imaging Report ---
INDICATION: Fall. Left ankle pain and swelling. COMPARISON: None. FINDINGS: Multiple radiographic views of left ankle were obtained and show acute fracture dislocation. There is acute transversely oriented fracture of the distal fibula with moderate displacement of distal fracture fragment. There is also fracture through the base of the medial and posterior malleoli. Additionally, there is severe lateral dislocation of the talus in respect to the tibia. No unexpected radiopaque foreign bodies are seen. IMPRESSION: Acute fracture dislocation of the left ankle. Dictated by: Dictated on workstation # [id number]
--- NOTE | 2022-05-31 19:33 | Diagnostic Imaging Report ---
INDICATION: Status post reduction. COMPARISON: Radiographs from earlier the same day. FINDINGS: Two radiographic views of the left ankle were obtained. Evaluation is partially obscured by radiopaque cast material. Trimalleolar fracture of the left ankle is again identified. There is improved alignment of the tibiotalar joint space. There is moderate residual asymmetric widening medially. No unexpected radiopaque foreign bodies are seen. IMPRESSION: Improved alignment status post reduction and placement of radiopaque cast material. Dictated by: Dictated on workstation # [id number]
[2022-05-31] MEDS ORDERED: morphine INJ 10 MG/ML 1ML (SYR OR VIAL) IVP STA (21:25)
[2022-05-31] MEDS ORDERED: ONDANSETRON 4 MG/2 ML (SDV) Z0FRAN IVP ONE (21:30)
[2022-05-31 23:22] VITALS: BP 133/78
[2022-06-01] VITALS (12 sets, daily range): BP systolic 126–185; BP diastolic 76–98
[2022-06-01] MEDS: morphine INJ 4 MG/ML 1 ML (VIAL/SYRINGE) IVP PRN ×7 (00:08→19:06)
[2022-06-01] MEDS: NS IV 1000 ML 1,000 ML IV SCH ×3 (00:08→13:36)
[2022-06-01] MEDS: ALPRAZolam 0.25 MG (XANAX) TAB PO PRN ×2 (00:08→18:43)
--- NOTE | 2022-06-01 07:30 | History & Physical Orthopedic ---
History and Physical Subjective Date of Exam 06/01/22 Chief Complaint Left Ankle Injury HPI/Events since last exam fell yesterday, seen in [facility] ER and diagnosed with left trimalleolar ankle fracture, had a closed reduction and splinting and then was transferred here for definitive treatment Medical, Surgical History Surgeries: Yes (vagus nerve stimulator) Gallbladder, Hysterectomy Respiratory: No Cardiac: Yes Hypertension Neurological: No Genitourinary: No Gastrointestinal: No Musculoskeletal: No Endocrine: Yes Hypothyroidsim HEENT: No Cancer: No Psychosocial: Yes Anxiety, Depression Integumentary: No Blood Disorders: No Social History noncontributory Family History noncontributory Review of Systems - Allergies: Coded Allergies: cephalexin (Verified Allergy, Unknown, Rash, 08/02/20) Objective Exam General: Alert, Awake, Oriented HEENT: NC, AT Cardiovascular: S1 and S2 present, cap refill normal on left toes Respiratory: Symmetric chest expansion, nonlabored breathing Abdomen: Soft, NT Extremities: Splint in place, toes up and down Neurologic: Sensation grossly intact to light touch Vital Signs Vital Signs Date Time Temp Pulse Resp B/P (MAP) Pulse Ox O2 Delivery O2 Flow Rate FiO2 06/01/22 03:50 36.6 72 18 170/76 (107) 96 Room Air 06/01/22 00:00 Room Air 05/31/22 23:22 36.3 68 18 133/78 (96) 95 Room Air 05/31/22 22:10 36.8 70 16 130/72 98 Room Air 05/31/22 18:25 36.7 69 18 158/76 (103) 97 Room Air Imaging Multiple views of the left ankle dated 05/31/22 were reviewed from PACS and demonstrated displaced trimalleolar ankle fracture Assessment and Plan Assessment Left Trimalleolar Ankle Fracture Problem List Left Trimalleolar Ankle Fracture Plan I have recommended ORIF of the fracture. Nature of the procedure and the postoperative course were discussed. Risks and benefits were discussed. Consent to be obtained. Will proceed later this AM. Final Diagonsis Left Trimalleolar Ankle Fracture Level of the visit: Level 3 (preop) SAE WEST MD Jun 01, 2022 07:30
[2022-06-01] MEDS ORDERED: CLINDAMYCIN 600 MG/50 ML IVPB 50 ML IV ONE (09:00)
[2022-06-01] MEDS ORDERED: BUPIVACAINE 0.25% 30 ML (SENSORCAINE) VIAL ONE (09:31)
[2022-06-01] MEDS: LACTATED RINGERS 1,000 ML IV PRN ×2 (09:35→10:30)
[2022-06-01] MEDS ORDERED: LIDOCAINE PF 2% 5 ML (XYLOCAINE) VIAL ONE (09:39)
[2022-06-01] MEDS ORDERED: proPOfol 200 MG/20 ML (DIPRIVAN) VIAL IV ONE (09:39)
[2022-06-01] MEDS ORDERED: fentaNYL INJ 100 MCG/2 ML AMP ONE ×2 (09:39→11:21)
[2022-06-01] MEDS ORDERED: ONDANSETRON 4 MG/2 ML (SDV) Z0FRAN ONE (09:39)
[2022-06-01] MEDS ORDERED: MIDAZOLAM 2 MG/2 ML (VERSED) VIAL ONE (09:40)
[2022-06-01] MEDS ORDERED: CLINDAMYCIN 900 MG/6ML (CLEOCIN) VIAL ONE (10:18)
[2022-06-01] MEDS ORDERED: RT-HYPERTONIC SALINE 3% 4 ML NEB IH ONE (11:25)
[2022-06-01] MEDS ORDERED: RT-epiNEPHrine (RACEMIC) 2.25% 0.5 ML VIAL ONE (11:25)
[2022-06-01] MEDS ORDERED: RT-SODIUM CHL INHALATION 3 ML VIAL ONE (11:25)
--- NOTE | 2022-06-01 11:42 | Anesthesia-General Post-Op ---
General Patient Condition Mental Status/LOC: Same as Preop Cardiovascular: Satisfactory Nausea/Vomiting: Absent Respiratory: Satisfactory (insp stridor appears to be resolved ) Pain: Controlled Complications: Absent Post Op Complications Complications None Follow Up Care/Instructions Patient Instructions None needed. Anesthesia/Patient Condition Patient Condition Patient is doing well, no complaints, stable vital signs, no apparent adverse anesthesia problems. No complications reported per nursing. ADALID ARMSTRONG CRNA Jun 01, 2022 11:42
[2022-06-01] MEDS ORDERED: RT-epiNEPHrine (RACEMIC) 2.25% 0.5 ML VIAL INH ONE (11:45)
[2022-06-01] MEDS ORDERED: ONDANSETRON 4 MG/2 ML (SDV) Z0FRAN IVP PRN ×2 (11:45)
[2022-06-01] MEDS ORDERED: HYDROmorphone 2 MG/ML VIAL (DILAUDID) IV ONE (11:45)
[2022-06-01] MEDS ORDERED: SEVOFLURANE (ULTANE) 15 ML INHAL SOLN ONE (12:01)
--- NOTE | 2022-06-01 12:01 | Diagnostic Imaging Report ---
INDICATION: Fluoroscopy for left ankle ORIF. FINDINGS: Fluoroscopy was provided in the OR during left ankle ORIF. 53 seconds of fluoroscopic time was utilized. Three images were obtained demonstrating a lateral plate and numerous screws transfixing the distal fibula. There are two partially threaded screws transfixing the medial malleolus. Ankle alignment is maintained. The ankle mortise is maintained. Hardware is intact. IMPRESSION: Fluoroscopy for left ankle ORIF. Dictated by: Dictated on workstation # [id number]
--- NOTE | 2022-06-01 12:15 | Operative Report - Ortho ---
Operative Report Surgeon (s)/Rough Rib Grader (s) Surgeon SAE WEST MD Rough Rib Grader n/a Pre-Operative Diagnosis Left Trimalleolar Ankle Fracture Post-Operative Diagnosis same Operative Report Date of Procedure: Jun 01, 2022 Name of Procedure Performed: Open Reduction and Internal Fixation of Left Trimalleolar Ankle Fracture Description & Findings After obtaining informed consent and marking the patient, patient did receive intravenous antibiotics. Taken to the operating room and general anesthesia was induced. Surgical timeout was taken. The left lower extremity was prepped and draped in the usual sterile fashion. Attention was initially turned to the fibula fracture, incision was made centered over the fracture. Dissection was carried down to the fracture and a periosteal elevator was used to expose the fibula proximally and distally. The fracture was provisionally reduced using clamps. A [employer] distal fibular plate was selected and placed. A wire was placed distally to position and temporarily hold the plate. A nonlocking screw was placed in the diaphysis of the fibula. A nonlocking screw was then placed distally. C-arm demonstrated good position of the plate with near anatomic reduction of the fracture. Wire was removed. Locking screws were used to fill the distal holes of the plate. Two additional locking screws were placed in the proximal portion of the plate. C-arm demonstrated appropriate position of the plate and screws and maintained reduction of the fracture. Attention was turned to the medial side. The medial malleolar fracture was in a reduced position. 2 wires were placed through the medial malleolar fragment and across the fracture site. C-arm was used to confirm position of the wires. Two 4.0 mm cannulated screws were then placed over the wires, seated by hand, and provided good approximation of the fracture site. Wires were removed. Final C-arm images were obtained in the AP, mortise, and lateral views and demonstrated appropriate reduction of the fractures and hardware in good position. The posterior malleolus fragment had reduced into near anatomic position and it was elected to manage it without additional fixation. Images were transferred to PACS. Wounds were irrigated with normal saline. Closed with 0 vicryl, 3-0 vicryl, and a combination of 3-0 and 4-0 nylon. Wounds were injected with local anesthetic. Dressed with xeroform, 4x4s, ABD, cast padding, soft roll, posterior splint, and WILLIAM wrap. Patient tolerated the procedure well and was stable to the recovery room. Anesthesia Type General Estimated Blood Loss minimal Specimen(s) collected/removed None SAE WEST MD Jun 01, 2022 12:15
--- NOTE | 2022-06-01 14:05 | Physical Therapy Evaluation ---
PT Evaluation-General Medical Diagnosis Admission Date May 31, 2022 at 23:00 Medical Diagnosis: left ankle fracture Onset Date: May 31, 2022 Therapy Diagnosis Therapy Diagnosis: debility/weakness Precautions Precautions/Isolations: Standard Precautions Weight Bear Status Right Lower Extremity: Right Full Weight Bearing Left Lower Extremity: Left Non Weight Bearing Referral Physician: Johnnie Reason for Referral: Evaluation/Treatment Medical History Pertinent Medical History: HTN, Hypothroidism Current History ER secondary to patient misstepped and twisted left ankle resulting in fracture Reviewed History: Yes Social History Home: Single Level Current Living Status: Spouse Entry Into Home: Stairs With Railing PT Steps Into Home: 2 Prior Prior Level of Function SCALE: Activities may be completed with or without assistive devices. 4-Xhgvtwxqxp-bkcrvlu completes the activity by him/herself with no assistance from a helper. 5-Set-up or Clean-up Assistance-helper sets up or cleans up; patient completes activity. [place] assists only prior to or following the activity. 4-Supervision or Touching Assistance-helper provides verbal cues and/or touching/steadying and/or contact guard assistance as patient completes activity. Assistance may be provided throughout the activity or intermittently. 3-Partial/Moderate Assistance-helper does LESS THAN HALF the effort. [place] lifts, holds or supports trunk or limbs, but provides less than half the effort. 2-Substantial/Maximal Assistance-helper does MORE THAN HALF the effort. [place] lifts or holds trunk or limbs and provides more than half the effort. 4-Olaqxdpol-rwfidh does ALL the effort. Patient does none of the effort to complete the activity. Or, the assistance of 2 or more helpers is required for the patient to complete the activity. If activity was not attempted, code reason: 7-Patient Refused. 9-Not Applicable-not attempted and the patient did not perform the activity before the current illness, exacerbation or injury. 10-Not Attempted due to Environmental Limitations-(lack of equipment, weather restraints, etc.). 88-Not Attempted due to Medical Conditions or Safety Concerns. Bed Mobility: 6 Transfers (B,C,W/C): 6 Gait: 6 Stairs: 6 Indoor Mobility (Ambulation): Independent Stairs: Independent Prior Devices Use: None PT Evaluation-Current Subjective Patient agrees to PT. Pain Numeric Pain Scale: 8 Location: Left Location Body Site: Ankle Pain Description: Acute Objective Patient Orientation: Normal For Age Attachments: IV ROM/Strength ROM Lower Extremities right LE WFL/left ankle soft cast Strength Lower Extremities right LE 4-/5 grossly/left LE 3/5 grossly Integumentary/Posture Bowel Incontinence: No Bladder Incontinence: No Posture WFL Neuromuscular (Tone, Coordination, Reflexes) grossly intact Sensory Vision: Wears Glasses Hearing: Functional Sensation Right Lower Extremit: Intact Sensation Left Lower Extremity: Intact Transfers Sit to Lying (QC): 6 Lying to Sitting/Side of Bed(Q: 6 Sit to Stand (QC): 4 Toilet Transfer (QC): 4 Gait Mode of Locomotion: Walk Anticipated Mode of Locomotion: Walk Walk 10 feet (QC): 4 Walk 50 ft with 2 Turns(QC): 88 Distance: 10' x 2 Gait Assistive Device: FWW Comments/Gait Description patient able to maintain NWB left LE and "hop" with FWW use Balance Sitting Static: Normal Sitting Dynamic: Normal Standing Static: Fair Standing Dynamic: Fair Assessment/Needs 56 y.o. female, will be seen short term by skilled PT to address functional st rength and mobility to improve current LOF to safely return to home at maximum LOF. 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 PT Fdc Goals Time Frame: Jun 13, 2022 Roll Left & Right (QC): 6 Sit to Lying (QC): 6 Lying-Sitting on Side/Bed(QC): 6 Sit to Stand (QC): 6 Chair/Xdk-cr-Hirst Xfer(QC): 6 Toilet Transfer (QC): 6 Walk 10 feet (QC): 6 Walk 50ft with 2 Turns (QC): 6 Walk 150 ft (QC): 6 PT Plan Problem List Problem List: Activity Tolerance, Functional Strength, Safety, Balance, Gait, Transfer Treatment/Plan Treatment Plan: Continue Plan of Care Treatment Plan: Education, Functional Activity Sameer, Functional Strength, Gait, Safety, Therapeutic Exercise, Transfers Treatment Duration: Jun 13, 2022 Frequency: 11 times per week Estimated Hrs Per Day: .5 hour per day Patient and/or Family Agrees t: Yes Safety Risks/Education Patient Education: Gait Training Time/GCodes Time In: 1325 Time Out: 1337 Total Billed Treatment Time: 12 Total Billed Treatment 1 visit EVMod 12 min COCO ORTEGA PT Jun 01, 2022 14:05
[2022-06-01] MEDS ORDERED: LAMO100T5 PO (14:07)
[2022-06-01] MEDS ORDERED: DOCU-143 PO (14:07)
[2022-06-01] MEDS ORDERED: ALPR0.254 PO (14:07)
[2022-06-01] MEDS ORDERED: ATOR10TA66 PO (14:07)
[2022-06-01] MEDS ORDERED: ATEN25TA PO (14:07)
[2022-06-01] MEDS ORDERED: SERT-414 PO (14:07)
[2022-06-01] MEDS ORDERED: PANT40TA52 PO (14:07)
[2022-06-01] MEDS ORDERED: QUET400T13 PO (14:07)
[2022-06-01] MEDS ORDERED: TRAM50TA3 PO (14:07)
[2022-06-01] MEDS ORDERED: ASPI-1238 PO (14:07)
[2022-06-01] MEDS ORDERED: LEVO150T6 PO (14:13)
[2022-06-01] MEDS ORDERED: LURA40TA2 PO (14:25)
[2022-06-01] MEDS ORDERED: LATUDA 80MG PO (14:39)
[2022-06-01] MEDS ORDERED: morphine INJ 10 MG/ML 1ML (SYR OR VIAL) IVP STA (19:03)
[2022-06-01] MEDS ORDERED: morphine INJ 4 MG/ML 1 ML (VIAL/SYRINGE) IVP STA (21:05)
[2022-06-01] MEDS ORDERED: QUEtiapine 200 MG (SEROquel) TAB IMMEDIATE RELEASE PO ONE (22:15)
[2022-06-01] MEDS: HYDROcodone/APAP 7.5 MG/325 MG (LORTAB, LORCET PLUS) TABLET PO PRN (23:53)
[2022-06-02] VITALS (8 sets, daily range): BP systolic 120–178; BP diastolic 63–87
[2022-06-02] MEDS: NS IV 1000 ML 1,000 ML IV SCH ×2 (01:39→11:44)
[2022-06-02] MEDS: ALPRAZolam 0.25 MG (XANAX) TAB PO PRN (03:47)
[2022-06-02] MEDS: HYDROcodone/APAP 7.5 MG/325 MG (LORTAB, LORCET PLUS) TABLET PO PRN ×5 (03:48→21:26)
--- NOTE | 2022-06-02 08:10 | Progress Note - Ortho ---
Progress Note Subjective Date of Exam 06/02/22 Chief Complaint POD #1 ORIF of Left Trimalleolar Ankle Fracture HPI/Events since last exam having some difficulty with pain, some difficulty with mobilization Review of Systems - Allergies: Coded Allergies: cephalexin (Verified Allergy, Unknown, Rash, 08/02/20) Home Meds Reported Medications [Latuda 80MG] 0.5 TAB No Conflict Check, 40 MG PO 1800 TAKES 1/2 OF (80MG) TAB 06/01/22 Levothyroxine Sodium (Levothyroxine Sodium) 150 Mcg Tablet, 150 MCG PO DAILY 06/01/22 Aspirin (Aspirin EC) 81 Mg Tablet.dr, 81 MG PO DAILY, TAB 06/01/22 Docusate Sodium (Colace) 100 Mg Capsule, 100 MG PO DAILY PRN for CONSTIPATION- 1ST LINE, CAP 06/01/22 Quetiapine Fumarate (Quetiapine Fumarate) 400 Mg Tablet, 400 MG PO HS 06/01/22 Atorvastatin Calcium (Atorvastatin Calcium) 10 Mg Tablet, 10 MG PO HS 06/01/22 Lamotrigine (Lamotrigine) 100 Mg Tablet, 100 MG PO DAILY 06/01/22 Sertraline HCl (Sertraline HCl) 100 Mg Tablet, 200 MG PO DAILY TAKES 2 (100MG) TABS 06/01/22 Atenolol (Atenolol) 25 Mg Tablet, 25 MG PO DAILY 06/01/22 ALPRAZolam (ALPRAZolam) 0.25 Mg Tablet, 0.25 MG PO TID PRN for ANXIETY 06/01/22 Pantoprazole Sodium (Pantoprazole Sodium) 40 Mg Tablet.dr, 40 MG PO DAILY 06/01/22 Tramadol HCl (Tramadol HCl) 50 Mg Tablet, 50 MG PO TID PRN for PAIN-MODERATE (5- 7) 06/01/22 Discontinued Reported Medications Lurasidone HCl (Latuda) 40 Mg Tablet, 80 MG PO 1800 TAKES 2 (40MG) TABS 06/01/22 Objective Exam Left Ankle: Splint C/D/I, toes up and down, cap refill brisk Vital Signs Vital Signs Date Time Temp Pulse Resp B/P (MAP) Pulse Ox O2 Delivery O2 Flow Rate FiO2 06/02/22 08:02 36.7 79 18 178/87 (117) 96 Room Air 06/02/22 04:20 36.8 81 16 120/74 (89) 95 Nasal Cannula 1.00 06/02/22 00:23 37.0 81 16 149/74 (99) 98 Nasal Cannula 1.00 06/01/22 19:29 37.2 93 18 167/78 (107) 97 Nasal Cannula 1.00 06/01/22 15:30 36.1 86 18 176/92 (120) 97 Nasal Cannula 1.00 06/01/22 12:44 36.7 84 18 185/91 (122) 97 Room Air 06/01/22 12:20 Nasal Cannula 3.00 06/01/22 12:20 36.3 20 162/98 (119) 99 Nasal Cannula 3.00 06/01/22 12:15 Nasal Cannula 3.00 06/01/22 12:10 20 162/98 (119) 97 Nasal Cannula 3.00 06/01/22 12:00 Nasal Cannula 3.00 06/01/22 12:00 20 157/94 (115) 98 Nasal Cannula 3.00 06/01/22 11:50 20 149/95 (113) 98 OxyMask 10.00 06/01/22 11:45 OxyMask 10.00 06/01/22 11:40 20 152/97 (115) 100 OxyMask 10.00 06/01/22 11:30 20 126/88 (101) 99 OxyMask 10.00 06/01/22 11:30 OxyMask 10.00 06/01/22 11:27 OxyMask 10.00 06/01/22 11:27 36.3 22 132/94 (107) 94 OxyMask 10.00 06/01/22 11:01 Room Air 0.00 I & O 06/02/22 07:00 Intake Total 3384 ml Balance 3384 ml Assessment and Plan Assessment L Trimalleolar Ankle Fx s/p ORIF Problem List L Trimalleolar Ankle Fx s/p ORIF Plan PT Able to go home when pain bearable on oral medication and able to transfer bed to chair Final Diagonsis L Trimalleolar Ankle Fx s/p ORIF Level of the visit: Level 3 (global) SAE WEST MD Jun 02, 2022 08:09
[2022-06-02] MEDS ORDERED: DOCUSATE SODIUM 100 MG (COLACE) CAP PO PRN (09:30)
[2022-06-02] MEDS ORDERED: ALPRAZolam 0.25 MG (XANAX) TAB PO PRN (09:30)
--- NOTE | 2022-06-02 10:08 | Physical Therapy Daily Note ---
PT Daily Note-Current Subjective Patient agrees to PT. Pain Numeric Pain Scale: 5-Moderate Pain Location: Left Location Body Site: Ankle Pain Description: Acute Mental Status Patient Orientation: Normal For Age Attachments: IV Transfers SCALE: Activities may be completed with or without assistive devices. 8-Reiookhjtc-sevabai completes the activity by him/herself with no assistance from a helper. 5-Set-up or Clean-up Assistance-helper sets up or cleans up; patient completes activity. [place] assists only prior to or following the activity. 4-Supervision or Touching Assistance-helper provides verbal cues and/or touching/steadying and/or contact guard assistance as patient completes activity. Assistance may be provided throughout the activity or intermittently. 3-Partial/Moderate Assistance-helper does LESS THAN HALF the effort. [place] lifts, holds or supports trunk or limbs, but provides less than half the effort. 2-Substantial/Maximal Assistance-helper does MORE THAN HALF the effort. [place] lifts or holds trunk or limbs and provides more than half the effort. 1-Rlwaildny-idlsqm does ALL the effort. Patient does none of the effort to complete the activity. Or, the assistance of 2 or more helpers is required for the patient to complete the activity. If activity was not attempted, code reason: 7-Patient Refused. 9-Not Applicable-not attempted and the patient did not perform the activity before the current illness, exacerbation or injury. 10-Not Attempted due to Environmental Limitations-(lack of equipment, weather restraints, etc.). 88-Not Attempted due to Medical Conditions or Safety Concerns. Lying to Sitting/Side of Bed(Q: 6 Sit to Stand (QC): 4 Chair/Een-ks-Ybweb Xfer(QC): 4 Toilet Transfer (QC): 4 Weight Bearing Right Lower Extremity: Right Full Weight Bearing Left Lower Extremity: Left Non Weight Bearing Gait Training Distance: 15' x 1/150' x 1 Walk 10 feet (QC): 4 Walk 50 ft with 2 Turns(QC): 4 Walk 150 ft (QC): 4 Gait Assistive Device: FWW NWB left LE Assessment Patient up in recliner with needs met. Patient c/o 6/10 right ankle pain. PT instructed patient to have a tennis shoe brought from home to place on right foot to take "shock" from NWB left LE with ambulation PT Engagement Liaison Goals [facility] Goals PT Engagement Liaison Goals Time Frame: Jun 13, 2022 Roll Left & Right (QC): 6 Sit to Lying (QC): 6 Lying-Sitting on Side/Bed(QC): 6 Sit to Stand (QC): 6 Chair/Rjw-zs-Qywgx Xfer(QC): 6 Toilet Transfer (QC): 6 Walk 10 feet (QC): 6 Walk 50ft with 2 Turns (QC): 6 Walk 150 ft (QC): 6 PT Plan Treatment/Plan Treatment Plan: Continue Plan of Care Treatment Plan: Education, Functional Activity Sameer, Functional Strength, Gait, Safety, Therapeutic Exercise, Transfers Treatment Duration: Jun 13, 2022 Frequency: 11 times per week Estimated Hrs Per Day: .5 hour per day Patient and/or Family Agrees t: Yes Time/GCodes Time In: 845 Time Out: 859 Total Billed Treatment Time: 14 Total Billed Treatment 1 visit GT 14 min COCO ORTEGA PT Jun 02, 2022 10:08
[2022-06-02] MEDS: ATENOLOL 25 MG (TENORMIN) TAB PO SCH (10:24)
[2022-06-02] MEDS: SERTRALINE 100 MG (ZOLOFT) TAB PO SCH (10:25)
--- NOTE | 2022-06-02 13:52 | Physical Therapy Progress Note ---
Therapy Progress Note Patient declined PT this p.m. due to up with nursing to restroom and her right ankle was hurting "too much" to do more. PT will attempt in a.m. 1 ref COCO ORTEGA PT Jun 02, 2022 13:52
[2022-06-02] MEDS: ASPIRIN E.C. 81 MG (ECOTRIN) TAB PO SCH (17:07)
[2022-06-02] MEDS ORDERED: LATUDA PO SCH (18:00)
[2022-06-02] MEDS ORDERED: QUEtiapine 200 MG (SEROquel) TAB IMMEDIATE RELEASE PO SCH (21:00)
[2022-06-02] MEDS ORDERED: AtorvaSTATin TABLET 10 MG TABLET PO SCH (21:00)
[2022-06-03] MEDS: HYDROcodone/APAP 7.5 MG/325 MG (LORTAB, LORCET PLUS) TABLET PO PRN ×3 (01:28→13:50)
[2022-06-03 03:30] VITALS: BP 134/75
[2022-06-03] MEDS ORDERED: LEVOTHYROXINE 150 MCG (LEVOTHROID) TAB PO SCH (06:30)
[2022-06-03 07:27] VITALS: BP 130/71
[2022-06-03] MEDS: SERTRALINE 100 MG (ZOLOFT) TAB PO SCH (08:52)
[2022-06-03] MEDS: ASPIRIN E.C. 81 MG (ECOTRIN) TAB PO SCH (08:52)
[2022-06-03] MEDS: ATENOLOL 25 MG (TENORMIN) TAB PO SCH (08:53)
[2022-06-03] MEDS ORDERED: PANTOPRAZOLE 40 MG (PROTONIX) TAB PO SCH (09:00)
--- NOTE | 2022-06-03 09:38 | Physical Therapy Daily Note ---
PT Daily Note-Current Subjective Patient in recliner pre tx, agrees to PT after some encouragement, has unrated pain in left leg. Appearance Patient in bed post tx with nurse call, phone, tray, all needs met. Mental Status Patient Orientation: Person, Place, Situation Transfers SCALE: Activities may be completed with or without assistive devices. 6-Lkzfvowrgs-ylgarsz completes the activity by him/herself with no assistance from a helper. 5-Set-up or Clean-up Assistance-helper sets up or cleans up; patient completes activity. [place] assists only prior to or following the activity. 4-Supervision or Touching Assistance-helper provides verbal cues and/or touching/steadying and/or contact guard assistance as patient completes activity. Assistance may be provided throughout the activity or intermittently. 3-Partial/Moderate Assistance-helper does LESS THAN HALF the effort. [place] l ifts, holds or supports trunk or limbs, but provides less than half the effort. 2-Substantial/Maximal Assistance-helper does MORE THAN HALF the effort. [place] lifts or holds trunk or limbs and provides more than half the effort. 2-Tumgzqcec-rmovah does ALL the effort. Patient does none of the effort to complete the activity. Or, the assistance of 2 or more helpers is required for t he patient to complete the activity. If activity was not attempted, code reason: 7-Patient Refused. 9-Not Applicable-not attempted and the patient did not perform the activity before the current illness, exacerbation or injury. 10-Not Attempted due to Environmental Limitations-(lack of equipment, weather restraints, etc.). 88-Not Attempted due to Medical Conditions or Safety Concerns. 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 [facility] Goals PT [facility] Goals Time Frame: Jun 13, 2022 Roll Left & Right (QC): 6 Sit to Lying (QC): 6 Lying-Sitting on Side/Bed(QC): 6 Sit to Stand (QC): 6 Chair/Zaj-ya-Awbcx Xfer(QC): 6 Toilet Transfer (QC): 6 Walk 10 feet (QC): 6 Walk 50ft with 2 Turns (QC): 6 Walk 150 ft (QC): 6 PT Plan Problem List Problem List: Activity Tolerance, Functional Strength, Safety, Balance, Gait, Transfer, Bed Mobility, ROM Treatment/Plan Treatment Plan: Continue Plan of Care Treatment Plan: Education, Functional Activity Sameer, Functional Strength, Gait, Safety, Therapeutic Exercise, Transfers Treatment Duration: Jun 13, 2022 Frequency: 11 times per week Estimated Hrs Per Day: .5 hour per day Patient and/or Family Agrees t: Yes Safety Risks/Education Patient Education: Gait Training, Transfer Techniques, Reviewed Precautions, Correct Positioning, Safety Issues Teaching Recipient: Patient Teaching Methods: Demonstration, Discussion Response to Teaching: Reinforcement Needed Time/GCodes Time In: 09 Time Out: 910 Total Billed Treatment Time: 11 Total Billed Treatment 1 visit FA 11' NEGRA PLEITEZ PT Jun 03, 2022 09:38
[2022-06-03] MEDS ORDERED: ASPI-1238 PO (10:51)
[2022-06-03] MEDS ORDERED: HYDR-34 PO (10:51)
--- NOTE | 2022-06-03 10:55 | Discharge Summary ---
Discharge Summary Hospital Course Hospital Course Date of Admission: May 31, 2022 at 23:00 Admission Diagnosis : Family Physician/Provider: Sebastian Coy MD Date of Discharge: 06/03/22 Discharge Diagnosis: [ Left Trimalleolar Ankle Fracture] Hospital Course: [Admitted on 05/31/22 from [facility]. Underwent ORIF of fracture on 06/01. Had some difficulty with pain control postoperatively. Initially had difficulty mobilizing. Worked with PT and improved with transfers. Pain control improved with modification of mediation regimen and time. Ready for discharge on 06/03/22. ] Labs and Pending Lab Test: Microbiology 06/01/22 MRSA Screen - Final, Complete MRSA not isolated Home Meds Active Aspirin EC (Aspirin) 81 Mg Tablet.dr 81 Mg PO BID WITH MEALS 30 Days Reported [Latuda 80MG] 0.5 Tab 40 Mg PO 1800 TAKES 1/2 OF (80MG) TAB Levothyroxine Sodium 150 Mcg Tablet 150 Mcg PO DAILY Aspirin EC (Aspirin) 81 Mg Tablet.dr 81 Mg PO DAILY Colace (Docusate Sodium) 100 Mg Capsule 100 Mg PO DAILY PRN Quetiapine Fumarate 400 Mg Tablet 400 Mg PO HS Atorvastatin Calcium 10 Mg Tablet 10 Mg PO HS Lamotrigine 100 Mg Tablet 100 Mg PO DAILY Sertraline HCl 100 Mg Tablet 200 Mg PO DAILY TAKES 2 (100MG) TABS Atenolol 25 Mg Tablet 25 Mg PO DAILY ALPRAZolam 0.25 Mg Tablet 0.25 Mg PO TID PRN Pantoprazole Sodium 40 Mg Tablet.dr 40 Mg PO DAILY Tramadol HCl 50 Mg Tablet 50 Mg PO TID PRN Assessment/Pt Instructions Remain NWB on Left leg. Walker for assist. Keep Splint clean, dry, and intact. Discharge Physical Examination Vital Signs Vital Signs Date Time Temp Pulse Resp B/P (MAP) Pulse Ox O2 Delivery O2 Flow Rate FiO2 06/03/22 08:00 Room Air 06/03/22 07:27 36.6 64 16 130/71 (90) 95 06/02/22 04:20 1.00 Extremity: Other (Left Ankle: Splint C/D/I, Toes flex and extend, Sensation intact to light touch grossly) Allergies: Coded Allergies: cephalexin (Verified Allergy, Unknown, Rash, 08/02/20) Discharge Summary Date of Admission May 31, 2022 at 23:00 Date of Discharge SAE WEST MD Jun 03, 2022 10:55
[2022-06-03 11:26] VITALS: BP 150/77
[2022-06-03 14:55] VITALS: BP 150/77
[2022-06-03] MEDS ORDERED: LATUDA PO SCH ×2 (15:00→15:15)
== END 2022-06-03 14:55 | disposition home or self-care (01) ==
LOC: EDUNIT# 18:21 → ER FS 18:23 → INTOOBSV 23:00 → 4TH 23:00 → UNDOADMOB 23:00 → 4TH 23:07 → SDC 23:07 → 4TH 06-01 16:43 → SDC 06-03 14:55 → UNDODISOB 06-03 14:55
PROVIDERS: ATTEND Orthopaedic Surgery
DX: S82.852A Displaced trimalleolar fracture of left lower leg, initial encounter for closed fracture (principal)
CPT/HCPCS: 27822; 29515; 73600; 73610; 76000; 87081; 97116; 97162; 97530; 99284; C1713 ×8; G0378

== ENCOUNTER 2022-06-06 15:15 | Emergency (ER) | payer MEDICARE ==
[~2022-06-06] VITALS: Ht 162 cm; Wt 80.0 kg
[~2022-06-06 15:15] MED LIST changes: +ALPR0.254 PO; +ASPI-1238 PO; +ATEN25TA PO; +ATOR10TA66 PO; -CATHETER FLUSH 10 ML SYR IV PRN; +DOCU-143 PO; -HOLD METFORMIN - RECEIVED CONTRAST 20 ML VIAL IV SCH; +HYDR-34 PO; -IOHEXOL 350 MG/ML 100 ML (OMNIPAQUE 350) VIAL IV ONE; +LAMO100T5 PO; +LATUDA 80MG PO; +LEVO150T6 PO; +LURA40TA2 PO; -NS 100 ML (IVPB) BAG IV ONE; +PANT40TA52 PO; +QUET400T13 PO; +SERT-414 PO; +TRAM50TA3 PO
[2022-06-06] MEDS ORDERED: MUPIROCIN 2% OINT 22 GM (BACTROBAN) TUBE NSEACH STA (17:29)
--- NOTE | 2022-06-06 17:42 | Diagnostic Imaging Report ---
PROCEDURE: US left lower extremity venous. TECHNIQUE: Multiple real-time grayscale images were obtained over the left lower extremity in various projections. Additional duplex Doppler and color Doppler images were also obtained. INDICATION: Left leg pain and swelling EXAMINATION: Grayscale and color Doppler evaluation of the deep veins of the left lower extremity were performed with waveform analysis. FINDINGS: Continuous venous flow is present. No intraluminal filling defect is identified. There is normal compressibility and response to augmentation. No abnormal perivascular fluid collection is identified. IMPRESSION: No ultrasound evidence of left lower extremity deep venous thrombosis. Dictated by: Dictated on workstation # [id number]
--- NOTE | 2022-06-06 19:17 | ED Fall/Injury ---
General Chief Complaint: Lower Extremity Stated Complaint: POST OP RECHECK LEFT ANKLE Nursing Triage Note: PT PRESENTS WITH C/O L. ANKLE/LEG SWELLING AND DISCOMFORT. PT REPORTS SHE BROKE HER ANKLE 05/25/22 AND HAD SURGERY. TODAY HER SPOUSE NOTED MORE SWELLING OF THE LEG. PT DENIES ANY FEVERS AND NO NEW INJURY. Source: patient Exam Limitations: no limitations History of Present Illness Date Seen by Provider: Jun 06, 2022 Allergies and Home Medications Allergies Coded Allergies: cephalexin (Verified Allergy, Unknown, Rash, 08/02/20) Patient Home Medication List ALPRAZolam (ALPRAZolam) 0.25 Mg Tablet, 0.25 MG PO TID PRN for ANXIETY, (Repor myrna) Entered as Reported by: GERRI GONZALEZ on 06/01/22 140 Aspirin (Aspirin EC) 81 Mg Tablet.dr, 81 MG PO BID WITH MEALS Prescribed by: SAE WEST MD on 06/03/22 1051 Atenolol (Atenolol) 25 Mg Tablet, 25 MG PO DAILY, (Reported) Entered as Reported by: GERRI GONZALEZ on 06/01/22 140 Atorvastatin Calcium (Atorvastatin Calcium) 10 Mg Tablet, 10 MG PO HS, (Reported) Entered as Reported by: GERRI GONZALEZ on 06/01/22 140 Docusate Sodium (Colace) 100 Mg Capsule, 100 MG PO DAILY PRN for CONSTIPATION- 1ST LINE, (Reported) Entered as Reported by: GERRI GONZALEZ on 06/01/22 140 Doxycycline Hyclate (Doxycycline Hyclate) 100 Mg Tablet, 100 MG PO BID Prescribed by: TREE GARVIN on 06/06/221921 Hydrocodone Bit/Acetaminophen (HYDROcodone/APAP 7.5/325 TAB) 1 Ea Tablet, 1 EA PO Q4H PRN for PAIN-MODERATE (5-7) Prescribed by: SAE WEST MD on 06/03/22 1051 Lamotrigine (Lamotrigine) 100 Mg Tablet, 100 MG PO DAILY, (Reported) Entered as Reported by: GERRI GONZALEZ on 06/01/22 140 Levothyroxine Sodium (Levothyroxine Sodium) 150 Mcg Tablet, 150 MCG PO DAILY, (Reported) Entered as Reported by: GERRI GONZALEZ on 06/01/22 1413 Pantoprazole Sodium (Pantoprazole Sodium) 40 Mg Tablet.dr, 40 MG PO DAILY, (Reported) Entered as Reported by: GERRI GONZALEZ on 06/01/22 140 Quetiapine Fumarate (Quetiapine Fumarate) 400 Mg Tablet, 400 MG PO HS, (Reported) Entered as Reported by: GERRI GONZALEZ on 06/01/22 140 Sertraline HCl (Sertraline HCl) 100 Mg Tablet, 200 MG PO DAILY, (Reported) Entered as Reported by: GERRI GONZALEZ on 06/01/22 140 Sulfamethoxazole/Trimethoprim (Bactrim Ds Tablet) 1 Each Tablet, 1 EACH PO BID Prescribed by: TREE GARVIN on 06/06/22 192 [Latuda 80MG] 0.5 TAB, 40 MG PO 1800, (Reported) Entered as Reported by: GERRI GONZALEZ on 06/01/22 1439 Discontinued Medications Aspirin (Aspirin EC) 81 Mg Tablet.dr, 81 MG PO DAILY, (Reported) Entered as Reported by: GERRI GONZALEZ on 06/01/22 140 Lurasidone HCl (Latuda) 40 Mg Tablet, 80 MG PO 1800, (Reported) Discontinued Reason: Prescription changed Entered as Reported by: GERRI GONZALEZ on 06/01/22 1425 Tramadol HCl (Tramadol HCl) 50 Mg Tablet, 50 MG PO TID PRN for PAIN-MODERATE (5- 7), (Reported) Entered as Reported by: GERRI GONZALEZ on 06/01/22 140 Past Xvboxnp-Hwezpj-Skzotp Hx Patient Social History Tobacco Use?: No Use of E-Cig and/or Vaping dev: No Substance use?: No Alcohol Use?: No Pt feels they are or have been: No Immunizations Up To Date Tetanus Booster (TDap): Less than 5yrs First/Initial COVID19 Vaccinat: Not currently vaccinated Second COVID19 Vaccination Vikram: Not currently vaccinated Third COVID19 Vaccination Date: Not currently vaccinated Seasonal Allergies Seasonal Allergies: No Past Medical History Surgery/Hospitalization HX: Hysterectomy; Cholecysectomy; Vagus nerve stimulator; Bipolar disorder; Hypothyroidism; HTN; High cholesterol Surgeries: Yes (vagus nerve stimulator) Gallbladder, Hysterectomy Respiratory: No Currently Using CPAP: No Currently Using BIPAP: No Cardiac: Yes Hypertension Neurological: No Genitourinary: No Gastrointestinal: No Musculoskeletal: No Endocrine: Yes Hypothyroidsim HEENT: No Cancer: No Psychosocial: Yes Anxiety, Depression Integumentary: No Blood Disorders: No Physical Exam Vital Signs Vital Signs - First Documented 06/06/22 15:23 Temp 36.0 Pulse 62 Resp 16 B/P (MAP) 104/70 (81) Pulse Ox 96 O2 Delivery Room Air Capillary Refill : Less Than 3 Seconds Height, Weight, BMI Height: '" Weight: lbs. oz. kg; 30.00 BMI Method:Actual Progress/Results/Core Measures Results/Orders My Orders Orders - TREE HART MD Venous Lower Ext Lt (06/06/22 15:51) Mupirocin Ointment (Bactroban Ointment (06/06/22 17:29) Sulfamethoxazole/Trimet Ds Tab (Bactrim (06/06/22 19:30) Doxycycline Hyclate Tablet (Vibramycin T (06/06/22 19:30) Medications Given in ED Current Medications Medications Dose Ordered Sig/Franco Route Start Time Stop Time Status Last Admin Dose Admin Doxycycline Hyclate 100 mg ONCE ONCE PO 06/06/22 19:30 06/06/22 19:31 DC 06/06/22 19:23 100 MG Trimethoprim/ Sulfamethoxazole 1 ea ONCE ONCE PO 06/06/22 19:30 06/06/22 19:31 DC 06/06/22 19:23 1 EA Vital Signs/I&O 06/06/22 15:23 Temp 36.0 Pulse 62 Resp 16 B/P (MAP) 104/70 (81) Pulse Ox 96 O2 Delivery Room Air Blood Pressure Mean: 81 Departure Impression Primary Impression: Postoperative pain Additional Impression: Postoperative edema Disposition: 01 HOME, SELF-CARE Condition: Improved Departure-Patient Inst. Decision time for Depature: 19:11 Referrals: JOSELO TIRADO MD (PCP/Family) Primary Care Physician Patient Instructions: Postoperative Pain (DC) Add. Discharge Instructions: Continue to follow the postoperative instructions as directed by Dr. West. Call his office on Wednesday to see if you can expedite the follow-up appointment. Complete the antibiotics as directed for the questionable infection of the upper medial incision. Return to care if you have worsening symptoms despite following these instructions and taking antibiotics. If you need to remove the top layer of Siddharth bandage and soft roll, you may do so to reduce the bulky nature of the splint or reduce the pressure. Call with questions or concerns. All discharge instructions reviewed with patient and/or family. Voiced understanding. Scripts Doxycycline Hyclate (Doxycycline Hyclate) 100 Mg Tablet 100 MG PO BID, #14 TAB 0 Refills Prov: TREE HART MD 06/06/22 Sulfamethoxazole/Trimethoprim (Bactrim Ds Tablet) 1 Each Tablet 1 EACH PO BID, #14 TAB Prov: TREE HART MD 06/06/22 TREE HART MD Jun 06, 2022 19:17
[2022-06-06] MEDS ORDERED: SULF1TAB38 PO (19:22)
[2022-06-06] MEDS ORDERED: DOXY100T2 PO (19:22)
[2022-06-06] MEDS ORDERED: TRIM/SULFAMETH 160/800 (SEPTRA DS) TAB PO ONE (19:30)
[2022-06-06] MEDS ORDERED: DOXYCYCLINE 100 MG (VIBRAMYCIN) TABLET PO ONE (19:30)
[2022-06-06 19:47] VITALS: BP 135/85
== END 2022-06-06 19:47 | disposition home or self-care (01) ==
LOC: EDUNIT# 15:15 → ER 15:18
DX: G89.18 Other acute postprocedural pain (principal); R60.0 Localized edema; Z28.310 Unvaccinated for COVID-19

== ENCOUNTER → 2022-06-16 | Outpatient (CLI) | payer MEDICARE ==
[~2022-06-16] MED LIST changes: +DOXY100T2 PO; +SULF1TAB38 PO
== END ==
LOC: ORTHO 09:25
PROVIDERS: ATTEND Orthopaedic Surgery
DX: Z47.89 Encounter for other orthopedic aftercare (principal); S93.401A Sprain of unspecified ligament of right ankle, initial encounter; X58.XXXA Exposure to other specified factors, initial encounter

== ENCOUNTER → 2022-07-13 | Outpatient (CLI) | payer MEDICARE ==
--- NOTE | 2022-07-13 17:17 | Diagnostic Imaging Report ---
INDICATION: Left ankle fracture. Postop followup. COMPARISON: 05/31/2022 FINDINGS: Multiple radiographic views of left ankle were obtained and show interval ORIF and removal of radiopaque cast material. Orthopedic side plate and screws are seen traversing the lateral margins of the distal fibula. 2 partially threaded screws are also present extending to the medial malleolus of the distal tibia. Fracture lines are much less conspicuous. Fracture fragments are in appropriate alignment. Tibiotalar joint space appears maintained. No unexpected radiopaque foreign bodies are seen. IMPRESSION: 1. Postoperative changes to the left ankle as above. Dictated by: Dictated on workstation # [id number]
== END ==
LOC: RAD FS 13:51
PROVIDERS: ATTEND Orthopaedic Surgery
DX: Z47.89 Encounter for other orthopedic aftercare (principal); S82.892D Other fracture of left lower leg, subsequent encounter for closed fracture with routine healing; X58.XXXD Exposure to other specified factors, subsequent encounter
CPT/HCPCS: 73610

== ENCOUNTER → 2022-08-11 | Outpatient (CLI) | payer MEDICARE ==
--- NOTE | 2022-08-11 12:44 | Diagnostic Imaging Report ---
INDICATION: Fracture followup. COMPARISON: 07/13/2022. FINDINGS: Partially-threaded screws transfix the medial malleolus in anatomic alignment. Plate and screws transfix the distal fibula. No widening of the mortise. No acute osseous or hardware fracture. IMPRESSION: Postop ankle in anatomic alignment with no acute abnormality or adverse change. Dictated by: Dictated on workstation # [id number]
== END ==
LOC: RAD FS 10:55
PROVIDERS: ATTEND Orthopaedic Surgery
DX: Z47.89 Encounter for other orthopedic aftercare (principal); S82.892D Other fracture of left lower leg, subsequent encounter for closed fracture with routine healing; X58.XXXD Exposure to other specified factors, subsequent encounter
CPT/HCPCS: 73610

== ENCOUNTER → 2022-09-30 | Outpatient (CLI) | payer MEDICARE | LOC: ORTHO 12:02 | PROVIDERS: ATTEND Orthopaedic Surgery | DX: Z47.89 Encounter for other orthopedic aftercare (principal) | CPT/HCPCS: 99213 ==

== ENCOUNTER 2023-01-07 17:51 | Emergency (ER) | payer MEDICARE ==
[~2023-01-07] VITALS: Ht 162 cm; Wt 85.0 kg
[2023-01-07] MEDS ORDERED: diphenhydrAMINE 50 MG/ML INJ (BENADRYL) IM STA (18:01)
[2023-01-07] MEDS ORDERED: methylPREDNISolone 80 MG/ML (DEPO MEDROL) VIAL IM STA (18:01)
--- NOTE | 2023-01-07 18:30 | ED General ---
General Chief Complaint: Oral/Throat Problems Stated Complaint: ORAL ITCHING Source of Information: Patient History of Present Illness Date Seen by Provider: Jan 07, 2023 Time Seen by Provider: 18:18 Initial Comments 57-year-old female presenting with complaints of generalized itching. She states that she had been seen in urgent care 2 days ago and they told her to take Benadryl and it would get better. She has never had a rash with the itching. She denies having other symptoms such as shortness of breath, abdominal pain, fever, chills, cough, nausea vomiting. She feels like she is scratching so much that she has rubbed some areas raw. She started feeling like she was having swelling and itching to her throat so she decided to come to the emergency department. She states that she is taking Benadryl and Claritin [id number] to help with her symptoms Timing/Duration: 4-5 Days Severity: Moderate Modifying Factors: improves with Cold Therapy (Cool showers help some) Associated Systoms: No Chest Pain, No Cough, No Diaphoresis, No Fever/Chills, No Headaches, No Loss of Appetite, No Malaise, No Nausea/Vomiting Allergies and Home Medications Allergies Coded Allergies: cephalexin (Verified Allergy, Unknown, Rash, 08/02/20) Patient Home Medication List Home Medication List Reviewed: Yes ALPRAZolam (ALPRAZolam) 0.25 Mg Tablet, 0.25 MG PO TID PRN for ANXIETY, (Reported) Entered as Reported by: GERRI GONZALEZ on 06/01/221406 Aspirin (Aspirin EC) 81 Mg Tablet.dr, 81 MG PO BID WITH MEALS Prescribed by: SAE WEST MD on 06/03/22 1051 Atenolol (Atenolol) 25 Mg Tablet, 25 MG PO DAILY, (Reported) Entered as Reported by: GERRI GONZALEZ on 06/01/22 140 Atorvastatin Calcium (Atorvastatin Calcium) 10 Mg Tablet, 10 MG PO HS, (Reported) Entered as Reported by: GERRI GONZALEZ on 06/01/221406 Docusate Sodium (Colace) 100 Mg Capsule, 100 MG PO DAILY PRN for CONSTIPATION- 1ST LINE, (Reported) Entered as Reported by: GERRI GONZALEZ on 06/01/22 140 Doxycycline Hyclate (Doxycycline Hyclate) 100 Mg Tablet, 100 MG PO BID Prescribed by: TREE GARVIN on 06/06/221921 Hydrocodone Bit/Acetaminophen (HYDROcodone/APAP 7.5/325 TAB) 1 Ea Tablet, 1 EA PO Q4H PRN for PAIN-MODERATE (5-7) Prescribed by: SAE WEST MD on 06/03/22 1051 Lamotrigine (Lamotrigine) 100 Mg Tablet, 100 MG PO DAILY, (Reported) Entered as Reported by: GERRI GONZALEZ on 06/01/22 140 Levothyroxine Sodium (Levothyroxine Sodium) 150 Mcg Tablet, 150 MCG PO DAILY, (Reported) Entered as Reported by: GERRI GONZALEZ on 06/01/22 1413 Pantoprazole Sodium (Pantoprazole Sodium) 40 Mg Tablet.dr, 40 MG PO DAILY, (Reported) Entered as Reported by: GERRI GONZALEZ on 06/01/22 140 Quetiapine Fumarate (Quetiapine Fumarate) 400 Mg Tablet, 400 MG PO HS, (Reported) Entered as Reported by: GERRI GONZALEZ on 06/01/22 140 Sertraline HCl (Sertraline HCl) 100 Mg Tablet, 200 MG PO DAILY, (Reported) Entered as Reported by: GERRI GONZALEZ on 06/01/22 140 Sulfamethoxazole/Trimethoprim (Bactrim Ds Tablet) 1 Each Tablet, 1 EACH PO BID Prescribed by: TREE GARVIN on 06/06/221921 [Latuda 80MG] 0.5 TAB, 40 MG PO 1800, (Reported) Entered as Reported by: GERRI GONZALEZ on 06/01/22 1439 Review of Systems Review of Systems Constitutional: No chills, No fever EENTM: see HPI Respiratory: No cough, No stridor, No wheezing Cardiovascular: no symptoms reported Gastrointestinal: no symptoms reported Genitourinary: no symptoms reported Musculoskeletal: no symptoms reported Skin: see HPI; No rash Psychiatric/Neurological: Anxiety Past Lhayxyp-Gnsqhf-Ttnjrn Hx Immunizations Up To Date Tetanus Booster (TDap): Less than 5yrs First/Initial COVID19 Vaccinat: Not currently vaccinated Second COVID19 Vaccination Vikram: Not currently vaccinated Third COVID19 Vaccination Date: Not currently vaccinated Seasonal Allergies Seasonal Allergies: No Past Medical History Surgery/Hospitalization HX: Hysterectomy; Cholecysectomy; Vagus nerve stimulator; Bipolar disorder; Hypothyroidism; HTN; High cholesterol Surgeries: Yes (vagus nerve stimulator) Gallbladder, Hysterectomy Respiratory: No Currently Using CPAP: No Currently Using BIPAP: No Cardiac: Yes Hypertension Neurological: No Genitourinary: No Gastrointestinal: No Musculoskeletal: No Endocrine: Yes Hypothyroidsim HEENT: No Cancer: No Psychosocial: Yes Anxiety, Depression Integumentary: No Blood Disorders: No Physical Exam Vital Signs Vital Signs - First Documented 01/07/23 18:35 Temp 36.4 Pulse 63 Resp 16 B/P (MAP) 169/88 (115) Pulse Ox 97 O2 Delivery Room Air Capillary Refill : Height, Weight, BMI Height: '" Weight: lbs. oz. kg; 30.00 BMI Method:Actual General Appearance: No Apparent Distress, WD/WN HEENT: PERRL/EOMI, TMs Normal, Normal ENT Inspection, Pharynx Normal, Moist Mucous Membranes Neck: Full Range of Motion, Normal Inspection, Non Tender, Supple Respiratory: Chest Non Tender, Lungs Clear, Normal Breath Sounds, No Accessory Muscle Use, No Respiratory Distress; No Stridor Cardiovascular: Regular Rate, Rhythm, Normal Peripheral Pulses Extremity: Normal Capillary Refill, Normal Inspection, No Pedal Edema Neurologic/Psychiatric: Alert, Oriented x3 Skin: Normal Color, Warm/Dry Progress/Results/Core Measures Suspected Sepsis SIRS Temperature: Pulse: Respiratory Rate: Blood Pressure / Mean: Results/Orders My Orders Orders - CHANG STEWART MD Dexamethasone Injection (Decadron Inje (01/07/23 18:01) Methylprednisolone Acetate Inj (Depo-Med (01/07/23 18:01) Diphenhydramine Injection (Benadryl Inje (01/07/23 18:01) Vital Signs/I&O 01/07/23 18:35 Temp 36.4 Pulse 63 Resp 16 B/P (MAP) 169/88 (115) Pulse Ox 97 O2 Delivery Room Air Capillary Refill : Progress Note : Progress Note Patient did not have any rash with her itching. I did not appreciate any stridor or swelling to her tongue or throat. We will add on steroids in addition to the antihistamines. Counseled on follow-up and return precautions. Check back with the clinic for continued concerns Departure Impression Primary Impression: Itching Additional Impression: Allergic reaction Qualified Codes: T78.40XA - Allergy, unspecified, initial encounter Disposition: HOME, SELF-CARE Condition: Stable Departure-Patient Inst. Decision time for Depature: 18:29 Referrals: JOSELO TIRADO MD (PCP) Primary Care Physician Patient Instructions: Allergic Reaction ED, Itchy Skin Add. Discharge Instructions: The steroid shots from today will help with the itching sensation and you may continue to take Benadryl or diphenhydramine. Consider adding in famotidine or Pepcid 20 mg twice a day to give some additional itch relief. You could try doing oatmeal baths to help with itching. If symptoms persist or continue then you may need to see a rate analyst to have more specialized testing. All discharge instructions reviewed with patient and/or family. Voiced understanding. CHANG STEWART MD Jan 07, 2023 18:30
[2023-01-07 18:35] VITALS: BP 169/88
== END 2023-01-07 18:35 | disposition home or self-care (01) ==
LOC: EDUNIT# 17:51 → ER FS 17:52
DX: L29.9 Pruritus, unspecified (principal); T78.40XA Allergy, unspecified, initial encounter; Z28.310 Unvaccinated for COVID-19
CPT/HCPCS: 99284

== ENCOUNTER 2023-07-26 08:02 | Day surgery (SDC) | payer MEDICARE ==
[~2023-07-26] VITALS: Ht 162.6 cm; Wt 86.0 kg
[~2023-07-26 08:02] MED LIST changes: +LISI10TA25 PO
[2023-07-26] MEDS ORDERED: LACTATED RINGERS 1,000 ML 1,000 ML IV STA (08:11)
[2023-07-26] MEDS ORDERED: HURRICAINE EXT TUBE (BENZOCAINE) XX PRN (08:15)
[2023-07-26 08:30] VITALS: BP 161/88
--- NOTE | 2023-07-26 08:38 | Progress Note-Pre Operative ---
Pre-Operative Progress Note Date of Available H&P: Jul 08, 2023 Date H&P Reviewed: Jul 26, 2023 Time H&P Reviewed: 08:34 History & Physical: H&P Reviewed, Patient Examed, No changes noted Pre-Operative Diagnosis: Hx of polyps, Dysphagia DARIEN CARBONE DO Jul 26, 2023 08:38
[2023-07-26] MEDS ORDERED: proPOfol INJECTION 200 MG/20 ML VIAL IV ONE (09:38)
[2023-07-26 09:44] VITALS: BP 124/64
[2023-07-26 09:45] VITALS: BP 124/64
--- NOTE | 2023-07-26 09:46 | Progress Note-Post Operative ---
Post-Operative Progess Note Surgeon (s)/Wire Coiner (s) Surgeon DARIEN CARBONE DO Wire Coiner: none Pre-Operative Diagnosis Hx of polyps, Dysphagia Post-Operative Diagnosis Gastritis Large Hiatal hernia Polyp diverticula Int and ext Hemorrhoids Procedure & Operative Findings Date of Procedure 07/26/23 Procedure Performed/Findings EGD with biopsy Colonoscopy with snare polypectomy PROCEDURE NOTE: After informed consent was obtained, the patient was brought to the endoscopy suite, placed in bed in left lateral decubitus position. She was administered IV sedation by the BETTING CLERK who then monitored vitals the entire time, heart rate, blood pressure and pulse ox and the scope was inserted down the mouth through the esophagus into the stomach. On the way down, noted some mild esophagitis, took a picture, pushed into the stomach and noted some moderate gastritis. I pushed past the antrum into the duodenum; duodenum looked good. Pulled back and did a biopsy of the antrum, then a biopsy of the body of the stomach and then retroflexed the scope. I saw large Grade IV AFS hiatal hernia, took a picture of this and then pulled the scope into the GE junction. I took another picture of the hiatal hernia and then did a biopsy of the GE junction. Pushed the scope back into the stomach, suctioned all the air out of the stomach. At this point pulled the scope up the esophagus and out the mouth. I did not see any blockage or inflammation in the esophagus to explain her dysphagia. Switched camera, switched gloves, went down below and started the colonoscopy. Pushed all the way to about 110 cm and pushed into the cecum. On the way in I noted a few diverticula and took a picture of them. Once in the cecum I took a picture of the appendiceal orifice and noted the ileocecal valve. Then slowly withdrew the scope insufflating to look circumferentially at the kelley starting in the cecum, up the ascending colon to the hepatic flexure, then down the transverse colon to the splenic flexure, into the descending colon and down into the sigmoid. At about 30cm in the Sigmoid I found a large pedunculated polyp and removed it with a snare. I suctioned it up to the scope and pulled the scope all the way to get the polyp. I then pushed the scope back to this site and resumed backing the scope out. Got into the rectal vault and retroflexed the scope. Took a picture of the internal hemorrhoids and then pulled the scope out and took a picture of the external hemorrhoids. The patient tolerated the procedure and she recovered in the endoscopy suite. Recommended for repeat colonoscopy in 3-5 years Anesthesia Type IV sedation by BETTING CLERK Estimated Blood Loss Estimated blood loss (mL): scant Specimens/Packing Specimens Removed antral bx body of stomach bx GE jxn bx Sigmoid polyp DARIEN CARBONE DO Jul 26, 2023 09:46
--- NOTE | 2023-07-26 09:48 | Endoscopy Discharge Instruct ---
Endo Procedure/Findings Findings 1.: Gastritis 2.: Hiatal Hernia 3.: Polyp 4.: Diverticulosis, Internal Hemorrhoids Discharge Instructions - Activity: You might feel a little sleepy until tomorrow. This is due to the medicine you received to relax you. Until tomorrow, you should: NOT drive a car, operate machinery or power tools. NOT drink any alcoholic beverages. NOT make any important decisions or sign importortant papers. Do not return to work until tomorrow, unless otherwise instructed. Resume previous activities tomorrow. Diet: Start by taking liquids. If you tolerate liquids, advance to solid food. 1.: EGD in 3 years 2.: Colonscopy in 3 years Notify Physician - If you experience excessive bleeding, unusual abdominal pain, fever, or chest pain, contact your doctor immediately. Follow-Up: Other Follow up in my office in one week DARIEN CARBONE DO Jul 26, 2023 09:48
[2023-07-26 10:41] VITALS: BP 124/64
--- NOTE | 2023-07-26 13:42 | Anesthesia-General Post-Op ---
MAC Patient Condition Mental Status/LOC: Same as Preop Cardiovascular: Satisfactory Nausea/Vomiting: Absent Respiratory: Satisfactory Pain: Controlled Complications: Absent Post Op Complications Complications None Follow Up Care/Instructions Patient Instructions None needed. Anesthesiology Discharge Order Discharge Order Patient is doing well, no complaints, stable vital signs, no apparent adverse anesthesia problems. No complications reported per nursing. PAULA MAYO SEWING MACHINE REPAIRER HELPER Jul 26, 2023 13:42
== END 2023-07-26 10:40 | disposition home or self-care (01) ==
LOC: ENDO 08:02
PROVIDERS: ATTEND Surgery
DX: Z12.11 Encounter for screening for malignant neoplasm of colon (principal); K29.50 Unspecified chronic gastritis without bleeding; D12.5 Benign neoplasm of sigmoid colon; K21.00 Gastro-esophageal reflux disease with esophagitis, without bleeding; K44.9 Diaphragmatic hernia without obstruction or gangrene; K57.30 Diverticulosis of large intestine without perforation or abscess without bleeding; K64.4 Residual hemorrhoidal skin tags; K64.8 Other hemorrhoids; K31.89 Other diseases of stomach and duodenum; G47.33 Obstructive sleep apnea (adult) (pediatric); Z99.81 Dependence on supplemental oxygen; Z28.310 Unvaccinated for COVID-19